=== PATIENT | male | born 2005 | race Caucasian/White ===

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

== ENCOUNTER 2024-05-11 00:41 | Emergency (ER) | payer OTHER ==
[~2024-05-11] VITALS: Ht 188 cm; Wt 113.4 kg
[~2024-05-11 00:41] MED LIST changes: +ONDA4ODT MM
[2024-05-11] MEDS ORDERED: Famotidine 20 MG Tab PO ONE (01:50)
[2024-05-11] MEDS ORDERED: Mag Hydrox/AL Hydrox/Simeth 30 ML UDC PO ONE (01:50)
[2024-05-11] MEDS ORDERED: Lidocaine 2% Viscous Soln 15 ML UDC PO ONE (01:50)
[2024-05-11] MEDS ORDERED: FAMO20 PO (01:53)
[2024-05-11] MEDS ORDERED: ALMACONE SUSPE355 ML PO (01:53)
[2024-05-11 02:09] VITALS: BP 145/62
== END 2024-05-11 02:09 | disposition home or self-care (01) ==
LOC: ER 00:41
DX: K21.9 Gastro-esophageal reflux disease without esophagitis (principal)
CPT/HCPCS: 93005; 93010; 99284-25; A9270

== ENCOUNTER → 2024-06-13 | Outpatient (CLI) | payer OTHER ==
[~2024-06-13] MED LIST changes: +ALMACONE SUSPE355 ML PO; +FAMO20 PO
[2024-06-13 14:22] LABS: Campylobacter Sp Not Detected (NOT DETECT)
[2024-06-13 14:23] LABS: Adenovirus F 40/41 Not Detected (NOT DETECT); Astrovirus Not Detected (NOT DETECT); Cryptosporidium Not Detected (NOT DETECT); Cyclospora Cayetanensis Not Detected (NOT DETECT); E. Coli O157 Not Detected (NOT DETECT); Entamoeba Histolytica Not Detected (NOT DETECT); Enteroaggregative E. coli-EAEC Not Detected (NOT DETECT); Enteropathogenic E. coli-EPEC Detected (NOT DETECT); Enterotoxigenic E. coli-ETEC Not Detected (NOT DETECT); Giardia Lamblia Not Detected (NOT DETECT); Norovirus GI/GII Not Detected (NOT DETECT); Plesiomonas Shigelloides Not Detected (NOT DETECT); Rotavirus A Not Detected (NOT DETECT); Salmonella Sp Not Detected (NOT DETECT); Sapovirus Not Detected (NOT DETECT); Shiga Toxin-prod E. coli-STEC Not Detected (NOT DETECT); Shigella/Enteroin E. coli-EIEC Not Detected (NOT DETECT); Vibrio Cholerae Not Detected (NOT DETECT); Vibrio Sp Not Detected (NOT DETECT); Yersinia Enterocolitica Not Detected (NOT DETECT)
== END | disposition home or self-care (01) ==
LOC: LAB SHORT 11:45 → LAB 11:45 → LAB FUT 06-09 13:00
PROVIDERS: Internal Medicine
DX: F41.9 Anxiety disorder, unspecified (principal); R10.9 Unspecified abdominal pain; R19.7 Diarrhea, unspecified; Z11.8 Encounter for screening for other infectious and parasitic diseases; Z11.4 Encounter for screening for human immunodeficiency virus [HIV]; Z11.3 Encounter for screening for infections with a predominantly sexual mode of transmission
CPT/HCPCS: 87507

== ENCOUNTER 2025-08-17 11:29 | Emergency (ER) | payer OTHER ==
[~2025-08-17] VITALS: Ht 188 cm; Wt 90.7 kg
[2025-08-17 15:32] VITALS: BP 134/77
== END 2025-08-17 16:20 | disposition home or self-care (01) ==
LOC: ER 11:29
DX: K64.9 Unspecified hemorrhoids (principal); Z79.899 Other long term (current) drug therapy
CPT/HCPCS: 99282